=== PATIENT | male | born 1975 | race Caucasian/White ===

== ENCOUNTER 2021-04-14 19:15 | Emergency (ER) | payer SELFPAY ==
--- NOTE | 2021-04-14 19:26 | ECG_ITS ---
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 Measurements Intervals [place] Rate: 111 P: 72 LA: 136 QRS: 69 QRSD: 90 T: 47 QT: 326 QTc: 443 Interpretive Statements SINUS TACHYCARDIA POSSIBLE LEFT ATRIAL ENLARGEMENT [-0.1mV P-WAVE IN V1/V2] ABNORMAL RHYTHM ECG No previous ECG available for comparison Electronically Signed On 04-14-2021 20:53:36 BUSINESS BANKING OFFICER by Kyle Ceron M.D. [id number]
--- NOTE | 2021-04-14 19:26 | XRR_ITS ---
PROCEDURE INFORMATION: Exam: XR Chest Exam date and time: 04/14/2021 7:26 PM Age: 46 years old Clinical indication: Cough and shortness of breath; Additional info: SOB TECHNIQUE: Imaging protocol: XR of the chest. Views: 1 view. COMPARISON: No relevant prior studies available. FINDINGS: Lungs: Ill-defined interstitial opacities in the periphery of both lungs. Findings are suspicious for pneumonia, including atypical and viral organisms. Mild elevation of the right hemidiaphragm. Pleural spaces: No pleural effusion. No pneumothorax. Heart/Mediastinum: The cardiac silhouette is mildly enlarged. Mediastinal contours are unremarkable. Bones/joints: Unremarkable for age. XR/XR chest 1V portable [id number] IMPRESSION: 1. Ill-defined interstitial opacities in the periphery of both lungs. Findings are suspicious for pneumonia, including atypical and viral organisms. Recommend clinical correlation. Recommend followup chest imaging to insure resolution of these findings. 2. Incidental/nonacute findings are listed in the report.
[2021-04-14 19:33] VITALS: BP 156/114; PULSE 129; RESP 26; TEMP 36.6; O2SAT 97; BMI 21.7
[2021-04-14 19:35] LABS: Basophils % 0.5 %; Eosinophils % 0.4 %; Hemoglobin 18.1 g/dL (11.7-16.6); Lymphocytes # 3.8 10^3/uL (0.8-4.8); Lymphocytes % 45.5 %; Mean Corpuscular HGB Conc 34.8 g/dL (30.0-36.0); Mean Corpuscular Hemoglobin 31.8 pg (28.0-34.0); Mean Corpuscular Volume 91.4 fl (80-94); Mean Platelet Volume 10.5 fL (7.4-10.4); Monocytes # 0.8 10^3/uL (0.2-0.9); Neutrophils # 3.58 10^3/uL (1.8-7.7); Neutrophils % 43.2 %; Nucleated Red Blood Cells % 0 %; Platelet Count 207 10^3/cmm (130-400); Red Blood Count 5.69 10^6/uL (4.1-5.3); Red Cell Distribution Width 12.6 % (12.1-15.1); White Blood Count 8.3 10^3/uL (4.0-10.0)
[2021-04-14 19:56] LABS: INR 0.89 (0.8-1.2)
[2021-04-14] MEDS: dexamethasone 10 mg/mL INJ 6 MG IVP (20:07)
[2021-04-14 20:16] LABS: Alanine Aminotransferase 106 U/L (0-41); Albumin Level 4.9 g/dL (3.5-5.2); Alkaline Phosphatase 142 IU/L (40-130); Anion Gap 22.2 (5-19); Aspartate Amino Transferase 113 U/L (0-40); Blood Urea Nitrogen 5 mg/dL (6-20); Calcium 10.3 mg/dL (8.5-10.5); Carbon Dioxide 22 mmol/L (22-29); Chloride 99 mmol/L (98-107); Glomerular Filtration Rate 120.4 mL/min (90-130); Glucose 134 mg/dL (65-115); NT Pro B Type Natriuretic Pept 25 pg/mL (0-125); Osmolality Calculated 287 mOsm/kg (285-295); Potassium 4.2 mmol/L (3.5-5.1); Sodium 139 mmol/L (136-145); Total Bilirubin 0.6 mg/dL (0.15-1.2); Total Protein 7.9 g/dL (6.6-8.7)
[2021-04-14 20:21] LABS: D Dimer 0.88 ug/mIFEU (0-0.59)
[2021-04-14 20:31] LABS: Troponin(5th) Baseline 19 ng/L (0-15)
[2021-04-14] MEDS: albuterol 8 gm MDI 2 PUFF INHALATION (20:34)
[2021-04-14 20:35] VITALS: PULSE 121; RESP 20; O2SAT 98
--- NOTE | 2021-04-14 20:45 | ED_ITS ---
HPI - SOB/Dyspnea General: Chief Complaint: Shortness of Breath/Dyspnea Stated Complaint: ANXIETY, DIFF BREATHING Time Seen by Provider: 04/14/21 19:43 Source: patient Limitations: no limitations History of Present Illness: HPI Narrative: 38-year-old male states that he was diagnosed with Covid roughly 2 weeks ago. He states that lasted 3 days been having increasing cough wheezing and dyspnea. He states tonight the cough got much worse and as well I cannot breathe said low-grade fevers denies any vomiting or diarrhea denies any worsening improving factors. Associated symptoms: Deny abdominal pain, chest pain, fever(s), nausea or vomiting Review of Systems Const: Denies: fever(s), chills, body aches or change in appetite Eyes: Denies: blurry vision or eye discomfort ENMT: Denies: throat pain or dental pain Card: Denies: chest pain Resp: Reports: dyspnea and non-productive cough GI: Denies: abdominal pain, nausea, vomiting or diarrhea : Denies: dysuria Musc: Denies: neck pain or back pain Skin/Breast: Denies: rash Neuro: Denies: headache(s) Psych: Denies: depression Akhil/Lymph: Denies: easy bruising All/Imm: Denies: urticaria Physical Exam Const: COMMON NORMALS: no acute distress, patient oriented x3 and healthy bakari earing HENMT: COMMON NORMALS: normocephalic and atraumatic HEAD & SCALP: normocephalic and atraumatic Eye: COMMON NORMALS: Equal, round and reactive pupils present and EOMs intact bilaterally PUPIL: Yes Equal, round and reactive pupils present Neck/C-Spine: COMMON NORMALS: full ROM and supple Chest: COMMONS NORMALS: normal inspection of the chest and normal palpation of entire chest wall Resp: COMMON NORMALS: normal respiratory effort, No retractions and No use of accessory muscles AUSCULTATION: wheezes Cardio: COMMON NORMALS: regular rate, regular rhythm and No murmurs present (Cardio) RATE: regular rate RHYTHM: regular rhythm GI: COMMON NORMALS: Normal to inspection, nondistended, normoactive bowel sounds present, Soft to palpation, non-tender and no masses PALPATION: Yes Soft to palpation Extremity: COMMON NORMALS: normal to inspection and full ROM Neuro: COMMON NORMALS: patient oriented x3, moves all extremities and no focal motor deficits Psych: COMMON NORMALS: mental status grossly normal, Normal thought process present and cooperative THOUGHT PROCESS: Normal thought process present Skin: COMMON NORMALS: no rashes or lesions noted and no wounds GENERAL SKIN EXAM: no rashes or lesions noted Course Vital Signs: Vital signs: Vital Signs Temperature 97.8 F 04/14/21 19:33 Pulse Rate 121 H 04/14/21 20:35 Respiratory Rate 20 H 04/14/21 20:35 Blood Pressure 156/114 04/14/21 19:33 Pulse Oximetry 98 04/14/21 20:35 MDM - SOB/Dyspnea Medical Decision Making Patient presents here with dyspnea likely from a post Covid pneumonitis he is much improved after breathing treatment will prescribe albuterol for home. He D-dimer mildly elevated likely due to his post COVID no signs of pulmonary embolism he is requesting discharge I feel he is stable for discharge he is to follow-up his PCP in 2 to 4 days return if worsening. Medical Records Patient presents with cough congestion likely post Covid pneumonitis Lab Data : 04/14/21 18:53 04/14/21 18:53 Labs/Radiology: Radiology Impressions Chest X-Ray 04/14/21 19:26 IMPRESSION: 1. Ill-defined interstitial opacities in the periphery of both lungs. Findings are suspicious for pneumonia, including atypical and viral organisms. Recommend clinical correlation. Recommend followup chest imaging to insure resolution of these findings. 2. Incidental/nonacute findings are listed in the report. Laboratory Results WBC 8.3 10^3/uL (4.0-10.0) 04/14/21 18:53 RBC 5.69 10^6/uL (4.1-5.3) H 04/14/21 18:53 Hgb 18.1 g/dL (11.7-16.6) H 04/14/21 18:53 Hct 52.0 % (42.0-52.0) 04/14/21 18:53 MCV 91.4 fl (80-94) 04/14/21 18:53 MCH 31.8 pg (28.0-34.0) 04/14/21 18:53 MCHC 34.8 g/dL (30.0-36.0) 04/14/21 18:53 RDW 12.6 % (12.1-15.1) 04/14/21 18:53 Plt Count 207 10^3/cmm (130-400) 04/14/21 18:53 MPV 10.5 fL (7.4-10.4) H 04/14/21 18:53 Neut % (Auto) 43.2 % 04/14/21 18:53 Lymph % (Auto) 45.5 % 04/14/21 18:53 Benson % (Auto) 10.0 % 04/14/21 18:53 Eos % (Auto) 0.4 % 04/14/21 18:53 Baso % (Auto) 0.5 % 04/14/21 18:53 Neut # (Auto) 3.58 10^3/uL (1.8-7.7) 04/14/21 18:53 Lymph # (Auto) 3.8 10^3/uL (0.8-4.8) 04/14/21 18:53 Benson # (Auto) 0.8 10^3/uL (0.2-0.9) 04/14/21 18:53 Eos # (Auto) 0.0 10^3/uL (0.0-0.8) 04/14/21 18:53 Baso # (Auto) 0.0 10^3/uL (0.0-0.1) 04/14/21 18:53 Nucleated RBC % (auto) 0 % 04/14/21 18:53 Nucleated RBCs # 0.0 /100WBC 04/14/21 18:53 PT 12.30 SECONDS (12.1-14.9) 04/14/21 18:53 INR 0.89 (0.8-1.2) 04/14/21 18:53 D-Dimer 0.88 ug/mIFEU (0-0.59) H 04/14/21 18:53 Sodium 139 mmol/L (136-145) 04/14/21 18:53 Potassium 4.2 mmol/L (3.5-5.1) 04/14/21 18:53 Chloride 99 mmol/L (98-107) 04/14/21 18:53 Carbon Dioxide 22 mmol/L (22-29) 04/14/21 18:53 Anion Gap 22.2 (5-19) H 04/14/21 18:53 BUN 5 mg/dL (6-20) L 04/14/21 18:53 Creatinine 0.7 mg/dL (0.7-1.2) 04/14/21 18:53 GFR Calculation 120.4 mL/min (90-130) 04/14/21 18:53 Glucose 134 mg/dL (65-115) H 04/14/21 18:53 Calculated Osmolality 287 mOsm/kg (285-295) 04/14/21 18:53 Calcium 10.3 mg/dL (8.5-10.5) 04/14/21 18:53 Total Bilirubin 0.6 mg/dL (0.15-1.2) 04/14/21 18:53 AST 113 U/L (0-40) H 04/14/21 18:53 ALT 106 U/L (0-41) H 04/14/21 18:53 Alkaline Phosphatase 142 IU/L (40-130) H 04/14/21 18:53 Troponin T Baseline 19 ng/L (0-15) H 04/14/21 18:53 NT-Pro-B Natriuret Pep 25 pg/mL (0-125) 04/14/21 18:53 Total Protein 7.9 g/dL (6.6-8.7) 04/14/21 18:53 Albumin 4.9 g/dL (3.5-5.2) 04/14/21 18:53 Globulin 3.0 g/dL (1.3-4.6) 04/14/21 18:53 Imaging Data CXR: Radiologist's impression: IMPRESSION: Mild enteritis. No intestinal obstruction. EKG Data EKG 1: I personally reviewed and interpreted this EKG as follows: EKG Interpretation Date: 04/14/21 EKG interpretation time: 20:21 Interpretation: sinus tach hr [address] or t wave abnormalities qrs 90 qtc 391 Discharge Plan Discharge Patient Disposition: Home Clinical Impression: COVID-19 Condition: Stable Prescriptions: New prednisone 50 mg tablet 50 mg PO DAILY Qty: 5 0RF albuterol sulfate 90 mcg/actuation HFA aerosol inhaler 2 inh INHALATION Q6H PRN (Reason: shortness of breath or wheezing) Qty: 8 0RF Augmentin 875-125 mg tablet 1 tab PO BID Qty: 14 0RF Discharge Orders: Discharge ED (Routine); Ordered 02/08/22 Ordered By: Arlene Craven Discharge Diet: Advance as tolerated Discharge Activity: Resume usual activity Patient Instructions: COVID-19 (Coronavirus Disease 2019) (ED) Stand Alone Forms: Work/School Release Coding Level of Care Code 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
[2021-04-14 20:59] VITALS: PULSE 114; RESP 20; O2SAT 97
== END 2021-04-14 20:59 | disposition home or self-care (01) ==
PROVIDERS: Emergency Provider Emergency Medicine
DX: U07.1 COVID-19 (principal)
CPT/HCPCS: 71045; 80053; 83880; 84484; 85025; 85378; 85610; 93005; 94640; 96374; 99283; J1100; J3535

== ENCOUNTER 2022-04-07 14:23 | Outpatient (CLI) | payer BC, SELFPAY ==
--- NOTE | 2022-04-07 | MR_ITS ---
WS: [id number] EXAMINATION: MR wrist LT wo con* [id number] ORDER DATE: 04/07/2022 2:58 PM COMPARISON: None. HISTORY: LT WRIST PAIN CONTRAST: None. TECHNIQUE: Axial T1, axial T2 fat sat, coronal T1, coronal proton density fat sat, coronal STIR, betty nal 3D, and sagittal T1 performed. After contrast, axial T1 fat sat, coronal T1 fat sat, and sagittal T1 fat sat were performed. FINDINGS: Some images moderately degraded by patient motion. Normal anatomic alignment. No acute fractures. Normal bone marrow signal in the scaphoid and lunate. Normal scapholunate interval. Normal bone marrow signal in the distal radius and ulna. Proximal metac arpals are normal in appearance. Mild degenerative narrowing at the radiocarpal joint. Normal 1st CMC and STT. Mild cystic degenerative changes in the proximal and distal carpal row. TFCC appears intact . Carpal tunnel is normal in appearance. Normal extensor retinaculum. Normal extensor carpi ulnaris. No rmal abductor pollicis longus and extensor pollicis brevis tendons. Normal radial and ulnar collatera l ligaments. MR/MR wrist LT wo con* [id number] IMPRESSION: Some images moderately degraded by patient motion. 1. Mild degenerative narrowing radiocarpal joint. No acute fractures. 2. Normal bone marrow signal in the scaphoid and lunate. Normal scapholunate i nterval. 3. Normal TFCC. Radial and ulnar collateral ligaments appear intact where visu alized. 4. Carpal tunnel is normal in appearance. 5. Normal abductor pollicis longus and extensor pollicis brevis tendons.
== END 2022-04-07 14:24 | disposition home or self-care (01) ==
PROVIDERS: Visit Provider Family Medicine
DX: S63.502D Unspecified sprain of left wrist, subsequent encounter (principal); X58.XXXD Exposure to other specified factors, subsequent encounter
CPT/HCPCS: 73221

== ENCOUNTER → 2023-09-14 12:03 | Outpatient (CLI) | payer OTHER, SELFPAY ==
--- NOTE | 2023-09-14 12:10 | MR_ITS ---
WS: [id number] MRI OF THE LEFT HAND WITHOUT GADOLINIUM ENHANCEMENT INDICATION: LEFT hand pain fall x3 months. Difficulty extending fingers. TECHNIQUE: Axial T1, axial T2, coronal T1, coronal STIR, sagittal T2 fat-sat, and coronal 3D FSPGR FINDINGS: Normal metacarpals. Normal bone marrow signal in the metacarpals. Normal MCP joints. Normal PIP and DIP joints. Phalanges are normal in appearance. First CMC is normal in appearance. Wrist is only partially included on this examination and prior suspected fracture is not included. Carpal tunnel only partially visualized. Normal extensor retinaculum. Small amount of fluid and edema involving the flexor tendon sheath and flexor pulleys with a small amount of subcutaneous edema. Thi s is most likely inflammatory. No other suspicious findings. MR/MR hand LT wo con* [id number] IMPRESSION: 1. Small amount of fluid and edema along the phalangeal flexor tendon sheaths compatible with tenosynovitis. Small amount of subcutaneous soft tissue edema. Findings likely inflammatory. 2. No evidence of drainable abscess or fluid collection. 3. Normal bone marrow signal in the metacarpals and phalanges. 4. The wrist is only partially visualized on this MRI hand. MRI or CT wrist ca n be obtained if additional concern. Previously described suspected fracture on the radiograph not included
== END | disposition home or self-care (01) ==
LOC: RAD 12:02
PROVIDERS: Visit Provider Family Medicine
DX: M65.842 Other synovitis and tenosynovitis, left hand (principal)
CPT/HCPCS: 73218

== ENCOUNTER 2023-09-27 16:00 | Outpatient (RCR) | payer OTHER, SELFPAY | END 2023-10-05 23:59 | disposition home or self-care (01) | LOC: SOT 16:00 | PROVIDERS: PCP Family Medicine; Visit Provider Family Medicine | DX: M79.642 Pain in left hand (principal) | CPT/HCPCS: 97110; 97165; 97530 ==

== ENCOUNTER 2023-10-06 06:00 | Outpatient (RCR) | payer OTHER, SELFPAY | END 2023-11-05 18:00 | disposition home or self-care (01) | LOC: SOT 06:00 | PROVIDERS: PCP Family Medicine; Visit Provider Family Medicine | DX: M79.642 Pain in left hand (principal) | CPT/HCPCS: 97022; 97110; 97140; G0283 ==

== ENCOUNTER → 2024-04-03 11:32 | Outpatient (BNVA) | payer OTHER, SELFPAY | PROVIDERS: PCP Family Medicine; Visit Provider Student in an Organized Health Care Education/Training Program | DX: M06.4 Inflammatory polyarthropathy (principal) | CPT/HCPCS: 36415; 80053; 84550; 85025; 85651; 86140; 86200; 86225; 86235; 86431 ==

== ENCOUNTER 2024-04-12 10:02 | Outpatient (RCR) | payer OTHER, SELFPAY | END 2024-05-04 23:59 | disposition home or self-care (01) | LOC: SOT 10:02 | PROVIDERS: Visit Provider Student in an Organized Health Care Education/Training Program | DX: M25.642 Stiffness of left hand, not elsewhere classified (principal) | CPT/HCPCS: 97022; 97110; 97140; 97166; 97530 ==

== ENCOUNTER 2024-05-05 06:30 | Outpatient (RCR) | payer OTHER, SELFPAY | END 2024-06-04 23:59 | disposition home or self-care (01) | LOC: SOT 06:30 | PROVIDERS: Visit Provider Student in an Organized Health Care Education/Training Program | DX: M25.642 Stiffness of left hand, not elsewhere classified (principal) | CPT/HCPCS: 97022; 97110; 97140; G0283 ==

== ENCOUNTER 2024-06-15 07:21 | Day surgery (SDC) | payer OTHER, SELFPAY ==
[2024-06-15] VITALS (8 sets, daily range): BP systolic 119–156; BP diastolic 79–105; PULSE 69–88; RESP 17–20; TEMP 36.1–36.4; O2SAT 95–98; BMI 22.3
[2024-06-15] MEDS: ketorolac 30 mg/mL INJ IVP (07:45)
[2024-06-15] MEDS: sodium chloride 0.9% 1,000 ML 30 ML IV (07:46)
[2024-06-15] MEDS: scopolamine 1 mg PATCH 1 PATCH TRANSDERMA (07:46)
[2024-06-15] MEDS: acetaminophen 1,000 MG/100 ML PIGGYBACK 400 MG IV (07:47)
--- NOTE | 2024-06-15 07:54 | W.PM.OPSUD ---
Surgery/Procedure H&P Update DATE OF PROCEDURE: June 15, 2024 DATE H&P PERFORMED: 05/29/24 H&P UPDATE INFORMATION: I have reviewed H&P completed within last 30 days, I have examined patient prior to procedure and No changes to prior documentation PREOP DIAGNOSIS: Left index, middle, ring finger trigger PRIMARY INDICATION FOR PROCEDURE: Left index middle and ring finger trigger PLANNED PROCEDURE: Operation Date: 06/15/24 09:00 Proposed Procedures p left index finger trigger release, left middle finger trigger release, left ring finger trigger release(Left) - Armando Perry DO
[2024-06-15] MEDS: ceFAZolin 2,000 MG in sodium chloride 0.9% (plus) 50 ML 100 MG IV (08:48)
--- NOTE | 2024-06-15 08:50 | ANES.PREANE2 ---
Pre-Anesthetic Assessment Height/Weight: Height 1.8 m Weight 72.575 kg Temp Pulse Resp BP Pulse Ox O2 Del Method 97.6 F 85 18 156/105 98 Room Air 06/15/24 07:38 06/15/24 07:38 06/15/24 07:38 06/15/24 07:38 06/15/24 07:38 06/15/24 07:38 Preop Diagnosis: Left index, middle, ring finger trigger Operation Date: 06/15/24 09:00 Proposed Procedures p left index finger trigger release, left middle finger trigger release, left ring finger trigger release(Left) - Armando Tift, DO Last intake: Intake Last Liquid Date 06/14/24 Last Liquid Time 17:30 Last Solid Date 06/14/24 Last Solid Time 17:30 Social Tobacco Exam alert, oriented x 3, clear to auscultation bilaterally (Normal Cardiac ) and regular rate & rhythm Airway Submandibular: within normal limits Cervical ROM: within normal limits Mallampati: Class I CV/HEM Hypertension Anesthetic Plan ASA status: 2 Anesthesia: MAC Medications/Allergies Home Medications ?Medication ?Instructions ?Recorded ?Confirmed ?Last Taken ?Type hydrochlorothiazide 12.5 mg capsule 12.5 mg PO DAILY 12/22/23 06/15/24 06/14/24 History losartan 100 mg tablet 100 mg PO DAILY 12/22/23 06/15/24 06/15/24 History diclofenac sodium 1 % topical gel 4 g topical QID #100 grams 04/03/24 06/15/24 Unknown Rx (Voltaren Arthritis Pain) tramadol 50 mg tablet 50 mg PO Q6H PRN pain 5 days #20 06/15/24 Unknown Rx tabs Allergies Allergy/AdvReac Type Severity Reaction Status Date / Time No Known Allergies Allergy Verified 06/15/24 07:36 Current Medications Generic Name Dose Route Start Last Admin Trade Name Freq PRN Reason Stop Dose Admin Sodium Chloride 1,000 mls @ 30 mls/hr 06/15/24 07:30 06/15/24 07:46 Sodium Chloride 0.9% IV 06/16/24 07:29 30 mls/hr .Q24H GERHARD Administration PFSH Anesthesia Social History Smoking and tobacco/nicotine status: former use of tobacco/nicotine (currently uses chewing tobacco) Data Anesthesia Cardiac Studies: No Data to Display
[2024-06-15] MEDS: ROPivacaine 0.5% SDV 30 mL 150 MG INJECTION (09:10)
[2024-06-15] MEDS: lidocaine 1% 10 ML INJ 30 ML XX (09:11)
--- NOTE | 2024-06-15 09:38 | P.BOP_ITS ---
Date of Procedure: 06/15/2024 Surgeon: Armando Perry DO Communication Electronic Technician(s): None Procedure(s) performed: Left index finger trigger release Left middle finger trigger release Left ring finger trigger release Findings of the procedure(s): Patient underwent procedure as planned without issues or complications was awakened at the end of the procedure and able to make a full fist and have his fingers touch his palm. Tolerated procedure well without issues or complication taken to PACU stable condition. Estimated blood loss: 5 mL Specimen(s) removed: None Post-operative diagnosis: Left index, middle, ring finger trigger
--- NOTE | 2024-06-15 09:39 | PM.OP ---
Operative Report Date of procedure: June 15, 2024 Surgeon: Armando Perry DO Procedure: Preoperative diagnosis: Left index, middle, ring finger trigger Post-op diagnosis: Same Procedure done: Left index finger trigger release Left middle finger trigger release Left ring finger trigger release Surgeon: Armando Perry DO Estimated blood loss: 5 cc Tourniquet time 14 mins Complications: None Condition: stable Disposition: same day Brief History: Patient's been seen and worked up in the outpatient setting and findings consistent with preoperative diagnosis of Left index, middle, ring finger?trigger.? He is failed conservative treatment.? Pain and diminished range of motion with appreciable triggering. We talked about treatment options nonoperative versus operative intervention.? ?Patient understands the risk benefits complication alternatives of surgical nonsurgical treatment options.? Understanding his risks with surgery he elects proceed with surgical intervention.? Consent obtained in the preop area index finger trigger release, left middle finger trigger release, left ring finger trigger release.? Here today to proceed with surgical intervention.? All questions answered. Procedure: Patient was seen and evaluated in the preoperative holding area.? Consent was reviewed and signed with patient.? Seen evaluated by Anesthesia Department.? Once cleared for surgery was brought back to the operative suite.? Placed in supine position on the OR table all bony prominences well-padded patient properly secured to the bed.? Patient's Left arm was then placed to the armboard.? A nonsterile tourniquet applied to the Left upper arm.? Patient's Left upper extremity was then prepped and draped in standard orthopedic fashion.? Final timeout performed.? Patient received appropriate preoperative antibiotics. Esmarch tourniquet was used exsanguinate the Left upper extremity tourniquet insufflated to 250 mmHg. Under sterile aseptic technique local digital block was performed to the Left index, middle, ring finger.? Once appropriately anesthetized a standard oblique incision over the index finger first was made centering over the A1 ines following patient's flexor crease.? Sharp scalpel incision was made only through skin and then switched to Littler dissection scissors and spread longitudinally directly over the flexor tendon sheath.? I then mobilized both radially and ulnarly and Kasdan retractors were used and placed by my assistant sales director to protect neurovascular bundle.? Next I visualized the A1 ines and this was incised with a scalpel.? I then switched to dissection scissors and released the A1 ines both proximally as well as distally to its entirety.? Significant tendon sheath fluid was noted consistent with inflammation.? Mild fraying of the flexor tendons noted but no tear.? At this point I utilized a rag nail and pulled the tendons FDS and FDP out of the incision and no?triggering was noted.? This point thorough irrigation was performed.? And proceeded with the middle finger next. A standard oblique incision over the middle finger was made centering over the A1 ines following patient's flexor crease.? Sharp scalpel incision was made only through skin and then switched to Littler dissection scissors and spread longitudinally directly over the flexor tendon sheath.? I then mobilized both radially and ulnarly and Kasdan retractors were used and placed by my assistant sales director to protect neurovascular bundle.? Next I visualized the A1 ines and this was incised with a scalpel.? I then switched to dissection scissors and released the A1 ines both proximally as well as distally to its entirety.? Significant tendon sheath fluid was noted consistent with inflammation.? Mild fraying of the flexor tendons noted but no tear.? At this point I utilized a rag nail and pulled the tendons FDS and FDP out of the incision and no?triggering was noted.? This completed the release of the middle finger I then subsequently went to the ring finger. Next I made a standard oblique incision over the ring finger was made centering over the A1 ines following patient's flexor crease.? Sharp scalpel incision was made only through skin and then switched to Littler dissection scissors and spread longitudinally directly over the flexor tendon sheath.? I then mobilized both radially and ulnarly and Kasdan retractors were used and placed by my assistant sales director to protect neurovascular bundle.? Next I visualized the A1 ines and this was incised with a scalpel.? I then switched to dissection scissors and released the A1 ines both proximally as well as distally to its entirety.? Significant tendon sheath fluid was noted consistent with inflammation.? Mild fraying of the flexor tendons noted but no tear.? At this point I utilized a rag nail and pulled the tendons FDS and FDP out of the incision and no?triggering was noted.? At this point time anesthesia has the patient wake up and patient was able to follow commands he was able to make a full fist and open his hand without any triggering was able to bring all of his digits into his palm and touch his fingertips to his palm with a significant improvement in his range of motion. Tourniquet deflated hemostasis satisfactory with bipolar.? I then subsequently closed the incision with interrupted nylon suture.? Xeroform 4 x 4's, Kerlix and an Huber wrap was applied for a bulky soft dressing.? Patient was then subsequently awakened from anesthesia and taken to PACU in stable condition tolerated procedure without issues. Disposition: Patient taken back in stable condition recovering well.? Patient will receive appropriate discharge instruction as well as pain medication postoperatively.? Patient to follow-up with me in the office in 2 weeks for repeat evaluation and incision check.? Patient understands that any questions or concerns and contact the office.? All questions answered.
--- NOTE | 2024-06-15 11:38 | ANE.PACU2 ---
Inpatient post-anesthesia follow up: Vital signs: Temperature 97.6 F Pulse Rate 69 Respiratory Rate 18 Blood Pressure 135/96 Pulse Oximetry 97 Oxygen Delivery Me thod Room Air Oxygen Flow Rate Fraction of Inspir ed Oxygen Hydration adequate: Yes Nausea and vomiting: No Pain level: 3 Mental status: Baseline
== END 2024-06-15 10:35 | disposition home or self-care (01) ==
PROVIDERS: PCP Family Medicine; Visit Provider Student in an Organized Health Care Education/Training Program
PROC: (CPT 26055; principal; 2024-06-15 08:50)
DX: M65.322 Trigger finger, left index finger (principal); M65.332 Trigger finger, left middle finger; M65.342 Trigger finger, left ring finger; I10 Essential (primary) hypertension; Z79.899 Other long term (current) drug therapy; Z87.891 Personal history of nicotine dependence
CPT/HCPCS: 26055 ×3; J0131; J0690; J1885; J2704; J2795; J3010; J7030; J9999

== ENCOUNTER → 2024-11-13 10:35 | Outpatient (BNVA) | payer OTHER, SELFPAY | PROVIDERS: PCP Family Medicine; Visit Provider Physician Assistant | DX: Z98.890 Other specified postprocedural states (principal); M65.342 Trigger finger, left ring finger; M65.332 Trigger finger, left middle finger; G56.22 Lesion of ulnar nerve, left upper limb; G56.02 Carpal tunnel syndrome, left upper limb | CPT/HCPCS: 73130 ==